=== PATIENT | male | born 1985 | race Hispanic/Latino ===

== ENCOUNTER 2018-10-15 11:51 | Emergency (ER) | payer MEDICAID ==
[2018-10-15] MEDS ORDERED: PENICILLIN V POTASSIUM 500 MG TABLET ONE (12:56)
[2018-10-15] MEDS ORDERED: ACETAMINOPHEN-CODEINE 300/30MG TAB ONE (12:57)
== END 2018-10-15 13:00 | disposition home or self-care (01) ==
LOC: EDH 11:51
DX: K08.89 Other specified disorders of teeth and supporting structures (principal); I10 Essential (primary) hypertension; F41.9 Anxiety disorder, unspecified; Z72.0 Tobacco use

== ENCOUNTER 2019-03-25 14:46 | Emergency (ER) | payer MEDICAID ==
[2019-03-25] MEDS ORDERED: ACETAMINOPHEN EXTRA STRENGTH 500 MG TABLET ONE (16:17)
[2019-03-25] MEDS ORDERED: SIMETHICONE 80 MG TAB.CHEW ONE (16:17)
[2019-03-25] MEDS ORDERED: HYOSCYAMINE SULFATE 0.125 MG TAB.SUBL SL ONE (16:18)
[2019-03-25] MEDS ORDERED: ONDANSETRON ODT 4 MG TAB ONE (16:18)
[2019-03-25 16:31] LABS: BASOPHILS % (AUTO) 0.5 % (0.0-5.0); EOSINOPHILS % (AUTO) 1.7 % (0.0-8.0); HEMATOCRIT 49.3 % (42-54); LYMPHOCYTES % (AUTO) 18.3 % (21.0-51.0); MEAN CORPUSCULAR HEMOGLOBIN 29.3 pg (27.0-33.0); MEAN CORPUSCULAR HGB CONC 34.4 g/dL (32.0-36.0); MEAN CORPUSCULAR VOLUME 85.2 fL (79-99); MONOCYTES % (AUTO) 7.7 % (3.0-13.0); NEUTROPHILS % (AUTO) 71.8 % (40.0-77.0); NUCLEATED RED BLOOD CELLS 0.1 % (0.0-0.19); PLATELET COUNT (AUTO) 136 K/uL (130-400); RED BLOOD CELL COUNT(AUTO) 5.78 MIL/uL (4.50-6.20); RED CELL DISTRIBUTION WIDTH 13.2 % (11.0-15.5); WHITE BLOOD COUNT (AUTO) 6.7 K/uL (4.8-10.8)
[2019-03-25 16:45] LABS: POTASSIUM 3.7 mmol/L (3.5-5.1)
[2019-03-25 16:50] LABS: BILIRUBIN,TOTAL 0.8 mg/dL (0.2-1.0); TOTAL PROTEIN, SERUM 8.2 g/dL (6.0-8.3)
== END 2019-03-25 17:07 | disposition home or self-care (01) ==
LOC: EDH 14:46
DX: R50.9 Fever, unspecified (principal); R11.2 Nausea with vomiting, unspecified; R19.7 Diarrhea, unspecified; I10 Essential (primary) hypertension; F41.9 Anxiety disorder, unspecified; Z87.891 Personal history of nicotine dependence
CPT/HCPCS: 36415; 80053; 83690; 85025

== ENCOUNTER 2019-03-29 21:31 | Emergency (ER) | payer MEDICAID ==
[2019-03-29] MEDS ORDERED: ACETAMINOPHEN-CODEINE 300/30MG TAB ONE (21:57)
[2019-03-29] MEDS ORDERED: TETANUS/DIPHTHERIA TOXOID [ADULT] 0.5 ML VIAL IM ONE (21:57)
== END 2019-03-29 22:09 | disposition home or self-care (01) ==
LOC: EDH 21:31
DX: T22.212A Burn of second degree of left forearm, initial encounter (principal); T31.0 Burns involving less than 10% of body surface; I10 Essential (primary) hypertension; F41.9 Anxiety disorder, unspecified; X12.XXXA Contact with other hot fluids, initial encounter; Y93.G3 Activity, cooking and baking; Y92.098 Other place in other non-institutional residence as the place of occurrence of the external cause; Y99.8 Other external cause status
CPT/HCPCS: 16020; 90471; 90714

== ENCOUNTER 2019-10-06 17:43 | Emergency (ER) | payer MEDICAID ==
[2019-10-06] MEDS ORDERED: SODIUM CHLORIDE 0.9% 1000ML 1,000 ML IV ONE ×3 (18:29→18:35)
[2019-10-06] MEDS ORDERED: ONDANSETRON HCL 4 MG/2 ML VIAL ONE (18:29)
[2019-10-06 18:55] LABS: BASOPHILS % (AUTO) 0.5 % (0.0-5.0); EOSINOPHILS % (AUTO) 0.4 % (0.0-8.0); HEMATOCRIT 48.4 % (42-54); LYMPHOCYTES % (AUTO) 15.4 % (21.0-51.0); MEAN CORPUSCULAR VOLUME 85.1 fL (79-99); MONOCYTES % (AUTO) 4.3 % (3.0-13.0); NEUTROPHILS % (AUTO) 79.4 % (40.0-77.0); PLATELET COUNT (AUTO) 143 K/uL (130-400); RED BLOOD CELL COUNT(AUTO) 5.69 MIL/uL (4.50-6.20); RED CELL DISTRIBUTION WIDTH 13.2 % (11.0-15.5); WHITE BLOOD COUNT (AUTO) 13.7 K/uL (4.8-10.8)
[2019-10-06 19:05] LABS: CREATININE 0.9 mg/dL (0.5-1.5); POTASSIUM 4.3 mmol/L (3.5-5.1)
[2019-10-06 19:10] LABS: ALBUMIN 4.2 g/dL (3.5-5.0); BILIRUBIN,TOTAL 0.4 mg/dL (0.2-1.0); TOTAL PROTEIN, SERUM 8.3 g/dL (6.0-8.3)
[2019-10-06] MEDS ORDERED: DICYCLOMINE HCL 10 MG/ML 2ML AMP IM ONE (20:38)
== END 2019-10-06 20:59 | disposition home or self-care (01) ==
LOC: EDH 17:43
DX: K52.9 Noninfective gastroenteritis and colitis, unspecified (principal); I10 Essential (primary) hypertension
CPT/HCPCS: 36415; 80053; 85025; 96372; 96374; 99284; J0500; J2405; J7030 ×3

== ENCOUNTER 2020-05-05 15:48 | Emergency (ER) | payer MEDICAID | END 2020-05-05 16:19 | disposition home or self-care (01) | LOC: EDH 15:48 | DX: K52.9 Noninfective gastroenteritis and colitis, unspecified (principal); I10 Essential (primary) hypertension; F41.9 Anxiety disorder, unspecified; Z72.0 Tobacco use ==

== ENCOUNTER 2022-07-06 21:17 | Emergency (ER) | payer MEDICAID ==
[~2022-07-06] VITALS: Ht 162.6 cm; Wt 77.1 kg
[2022-07-06 21:19] VITALS: BP 144/79
[2022-07-06] MEDS ORDERED: FAMO-136 PO (23:20)
[2022-07-06 23:29] LABS: BASOPHILS % (AUTO) 0.6 % (0.0-5.0); EOSINOPHILS % (AUTO) 0.2 % (0.0-8.0); HEMATOCRIT 49.3 % (42-54); LYMPHOCYTES % (AUTO) 19.9 % (21.0-51.0); MEAN CORPUSCULAR HEMOGLOBIN 29.4 pg (27.0-33.0); MEAN CORPUSCULAR HGB CONC 34.3 g/dL (32.0-36.0); MEAN CORPUSCULAR VOLUME 85.9 fL (79-99); MONOCYTES % (AUTO) 4.4 % (3.0-13.0); NEUTROPHILS % (AUTO) 74.7 % (40.0-77.0); PLATELET COUNT (AUTO) 145 K/uL (130-400); RED BLOOD CELL COUNT(AUTO) 5.74 MIL/uL (4.50-6.20); RED CELL DISTRIBUTION WIDTH 12.4 % (11.0-15.5); WHITE BLOOD COUNT (AUTO) 9.3 K/uL (4.8-10.8)
[2022-07-06] MEDS ORDERED: MAG/ALUM/SIMETH 30 ML UDCUP PO ONE (23:30)
[2022-07-06] MEDS ORDERED: FAMOTIDINE 20MG TAB PO ONE (23:30)
[2022-07-06] MEDS ORDERED: LIDOCAINE HCL 2% VISCOUS 15 ML UDCUP PO ONE (23:30)
[2022-07-06 23:38] LABS: POTASSIUM 4.1 mmol/L (3.5-5.1)
[2022-07-06 23:46] LABS: ALBUMIN 4.5 g/dL (3.5-5.0); TOTAL PROTEIN, SERUM 8.8 g/dL (6.0-8.3)
== END 2022-07-07 00:02 | disposition home or self-care (01) ==
LOC: EDH 21:17
DX: K21.9 Gastro-esophageal reflux disease without esophagitis (principal); I10 Essential (primary) hypertension; F41.9 Anxiety disorder, unspecified
CPT/HCPCS: 36415; 80053; 83690; 84484; 85025; 93005

== ENCOUNTER 2022-08-20 21:19 | Emergency (ER) | payer MEDICAID ==
[~2022-08-20] VITALS: Ht 165.1 cm; Wt 76.7 kg
[~2022-08-20 21:19] MED LIST: FAMO-136 PO
[2022-08-20 21:57] VITALS: BP 133/75
[2022-08-20 22:00] LABS: BASOPHILS % (AUTO) 0.5 % (0.0-5.0); EOSINOPHILS % (AUTO) 0.8 % (0.0-8.0); HEMATOCRIT 48.4 % (42-54); LYMPHOCYTES % (AUTO) 34.5 % (21.0-51.0); MEAN CORPUSCULAR HEMOGLOBIN 29.4 pg (27.0-33.0); MEAN CORPUSCULAR HGB CONC 34.7 g/dL (32.0-36.0); MEAN CORPUSCULAR VOLUME 84.8 fL (79-99); MONOCYTES % (AUTO) 6.5 % (3.0-13.0); NEUTROPHILS % (AUTO) 57.3 % (40.0-77.0); PLATELET COUNT (AUTO) 157 K/uL (130-400); RED BLOOD CELL COUNT(AUTO) 5.71 MIL/uL (4.50-6.20); RED CELL DISTRIBUTION WIDTH 12.8 % (11.0-15.5); WHITE BLOOD COUNT (AUTO) 9.4 K/uL (4.8-10.8)
[2022-08-20 22:08] LABS: POTASSIUM 3.5 mmol/L (3.5-5.1)
[2022-08-20 22:13] LABS: ALBUMIN 3.9 g/dL (3.5-5.0)
[2022-08-20 22:35] LABS: TOTAL PROTEIN, SERUM 8.3 g/dL (6.0-8.3)
[2022-08-20] MEDS ORDERED: PANT40TA PO (22:36)
== END 2022-08-20 23:01 | disposition home or self-care (01) ==
LOC: EDH 21:19
DX: K21.00 Gastro-esophageal reflux disease with esophagitis, without bleeding (principal); Z79.899 Other long term (current) drug therapy
CPT/HCPCS: 36415; 80053; 83690; 84484; 85025; 93005

== ENCOUNTER 2024-02-19 14:18 | Emergency (ER) | payer MEDICAID ==
[~2024-02-19] VITALS: Ht 152.4 cm; Wt 77.1 kg
[~2024-02-19 14:18] MED LIST changes: +PANT40TA PO
[2024-02-19] MEDS ORDERED: IBUP-2077 PO (15:52)
[2024-02-19] MEDS: IBUPROFEN 800 MG TAB PO ONE (15:56)
[2024-02-19 16:00] VITALS: BP 121/86; PULSE 95; RESP 18; O2SAT 99
== END 2024-02-19 16:04 | disposition home or self-care (01) ==
LOC: EDH 14:18
DX: S92.352A Displaced fracture of fifth metatarsal bone, left foot, initial encounter for closed fracture (principal); S93.402A Sprain of unspecified ligament of left ankle, initial encounter; X50.1XXA Overexertion from prolonged static or awkward postures, initial encounter; Y93.89 Activity, other specified; Y92.480 Sidewalk as the place of occurrence of the external cause; Y99.8 Other external cause status
CPT/HCPCS: 73610; 73630

== ENCOUNTER 2024-09-05 14:51 | Emergency (ER) | payer MEDICAID ==
[~2024-09-05] VITALS: Ht 152.4 cm; Wt 74.8 kg
[~2024-09-05 14:51] MED LIST changes: +IBUP-2077 PO
[2024-09-05 14:52] VITALS: BP 123/91; PULSE 106; RESP 14; TEMP 100
[2024-09-05 15:24] LABS: BASOPHILS # (AUTO) 0.05 K/uL (0.00-0.20); BASOPHILS % (AUTO) 0.3 % (0.0-5.0); EOSINOPHILS # (AUTO) 0.04 K/uL (0.00-0.70); EOSINOPHILS % (AUTO) 0.3 % (0.0-8.0); HEMATOCRIT 50.6 % (42-54); IMMATURE GRANULOCYTE ABSOLUTE 0.05 K/uL (0-1); LYMPHOCYTES # (AUTO) 1.3 K/uL (1.0-4.8); LYMPHOCYTES % (AUTO) 8.5 % (21.0-51.0); MEAN CORPUSCULAR HEMOGLOBIN 28.8 pg (27.0-33.0); MEAN CORPUSCULAR HGB CONC 34.2 g/dL (32.0-36.0); MEAN CORPUSCULAR VOLUME 84.3 fL (79-99); MONOCYTES # (AUTO) 0.8 K/uL (0.1-1.0); MONOCYTES % (AUTO) 5.2 % (3.0-13.0); NEUTROPHILS # (AUTO) 12.9 K/uL (1.8-7.7); NEUTROPHILS % (AUTO) 85.4 % (40.0-77.0); PLATELET COUNT (AUTO) 147 K/uL (130-400); RED CELL DISTRIBUTION WIDTH 12.7 % (11.0-15.5); WHITE BLOOD COUNT (AUTO) 15.1 K/uL (4.8-10.8)
[2024-09-05] MEDS ORDERED: 0.9%NACL 1000ML 1,000 ML IV ONE (15:30)
[2024-09-05] MEDS ORDERED: FAMOTIDINE 20MG VIAL IV ONE (15:30)
[2024-09-05] MEDS ORDERED: acetaMINOPHEN 500 MG TABLET PO ONE (15:30)
[2024-09-05] MEDS ORDERED: ondanSETRON 4MG INJ IVP ONE (15:30)
[2024-09-05 15:35] LABS: POTASSIUM 4.2 mmol/L (3.5-5.1)
[2024-09-05 15:39] LABS: ALBUMIN 4.1 g/dL (3.5-5.0); BILIRUBIN,DIRECT 0.1 mg/dL (0.0-0.3); BILIRUBIN,TOTAL 0.8 mg/dL (0.2-1.0); TOTAL PROTEIN, SERUM 8.3 g/dL (6.0-8.3)
--- NOTE | 2024-09-05 19:08 | NUR ---
CALLED PT FROM LOBBY TO MOVE TO ROOM 5; NO RESPONSE; PT NOT FOUND IN LOBBY.
--- NOTE | 2024-09-05 19:12 | ERN ---
General Chief Complaint: Diarrhea Stated Complaint: DIARRHEA Time Seen by MD: 14:55 Time Seen by Midlevel: 14:55 Source: patient History of Present Illness Initial Comments 39-year-old male presenting to the ER for evaluation of diffuse abdominal pain with associated diarrhea that started yesterday. Denies nausea and vomiting. Denies any other symptoms at this time Allergies: Coded Allergies: No Known Allergies (Unverified Allergy, Unknown, 07/06/22) Home Meds Active Scripts Ibuprofen (Ibuprofen 800 mg Tab) 800 Mg Tab, 800 MG PO Q6H PRN for PAIN, #30 TAB Prov:TEO NAVARRO NP 02/19/24 Pantoprazole Sodium (Protonix) 40 Mg Tablet.dr, 40 MG PO DAILY, #30 TAB 0 Refills Prov:NIEVES MAYER MD 08/20/22 Famotidine (Pepcid) 20 Mg Tablet, 20 MG PO DAILY, #30 TAB Prov:ARMIN LOUIE 07/06/22 Past Medical History Past Medical History: Anxiety, Hypertension Past Surgical History: None Social History Social History: Other ROS Dictation CONSTITUTIONAL: Negative except for HPI HEAD/FACE: Negative except for HPI EENT: Negative except for HPI RESPIRATORY: Negative except for HPI GASTROINTESTINAL/ABDOMINAL: Negative except for HPI GENITOURINARY: Negative except for HPI MUSCULOSKELETAL: Negative except for HPI INTEGUMENTARY: Negative except for HPI NEUROLOGICAL/PSYCH: Negative except for HPI HEMATOLOGIC/LYMPHATIC: Negative except for HPI All Systems Negative, Except as noted above. 13 point review of systems assessed and all negative except for above. Physical Exam Physical Exam Dictation PHYSICAL EXAM: GENERAL: alert,, awake oriented x 3 NECK: Supple, no JVD, trachea midline LUNGS: Clear breath sounds bilaterally. No wheezes HEART: Regular rate and rhythm. Normal S1 and S2, without murmurs ABD: Abdomen soft, nontender. Bowel sounds present EXT: No clubbing or cyanosis, NEURO: Alert and oriented to person, follows commands Results Laboratory and Microbiology Lab and Micro Result Laboratory Tests Test 09/05/24 15:09 White Blood Count 15.1 K/uL (4.8-10.8) H Red Blood Count 6.00 MIL/uL (4.50-6.20) Hemoglobin 17.3 g/dL (14.0-18.0) Hematocrit 50.6 % (42-54) Mean Corpuscular Volume 84.3 fL (79-99) Mean Corpuscular Hemoglobin 28.8 pg (27.0-33.0) Mean Corpuscular Hemoglobin Concent 34.2 g/dL (32.0-36.0) Red Cell Distribution Width 12.7 % (11.0-15.5) Platelet Count 147 K/uL (130-400) Mean Platelet Volume 11.8 fL (7.5-10.5) H Immature Granulocyte % (Auto) 0.3 % (0-1) Neutrophils (%) (Auto) 85.4 % (40.0-77.0) H Lymphocytes (%) (Auto) 8.5 % (21.0-51.0) L Monocytes (%) (Auto) 5.2 % (3.0-13.0) Eosinophils (%) (Auto) 0.3 % (0.0-8.0) Basophils (%) (Auto) 0.3 % (0.0-5.0) Neutrophils # (Auto) 12.9 K/uL (1.8-7.7) H Lymphocytes # (Auto) 1.3 K/uL (1.0-4.8) Monocytes # (Auto) 0.8 K/uL (0.1-1.0) Eosinophils # (Auto) 0.04 K/uL (0.00-0.70) Basophils # (Auto) 0.05 K/uL (0.00-0.20) Absolute Immature Granulocyte (auto 0.05 K/uL (0-1) Nucleated Red Blood Cells 0.0 % (0.0-0.19) White Cell Morphology Comment See comments Sodium Level 133 mmol/L (136-145) L Potassium Level 4.2 mmol/L (3.5-5.1) Chloride Level 97 mmol/L (101-111) L Carbon Dioxide Level 31 mmol/L (21-32) Blood Urea Nitrogen 13 mg/dL (7-18) Creatinine 1.0 mg/dL (0.5-1.3) Glomerular Filtration Rate Calc 97 mL/min (>90) Random Glucose 116 mg/dL (70-105) H Lactic Acid Level 1.7 mmol/L (0.8-2.5) Total Calcium 9.0 mg/dL (8.5-10.1) Total Bilirubin 0.8 mg/dL (0.2-1.0) Direct Bilirubin 0.1 mg/dL (0.0-0.3) Aspartate Amino Transf (AST/SGOT) 13 U/L (10-37) Alanine Aminotransferase (ALT/SGPT) 34 U/L (12-78) Alkaline Phosphatase 68 U/L (50-136) Total Protein 8.3 g/dL (6.0-8.3) Albumin 4.1 g/dL (3.5-5.0) Lipase 47 U/L (16-77) MDM 39-year-old male presenting with diffuse abdominal pain with associated diarrhea. He was seen in triage. Labs ordered. He was found to have a leukocytosis. A CT scan of the abdomen and pelvis with contrast is ordered however patient was nowhere to be found in the triage area. Patient eloped in the emergency department. ED Course Orders Procedure Category Date Status Time Basic Metabolic Panel LAB 09/05/24 Complete 15: Cbc With Differential LAB 09/05/24 Complete 15:03 Hepatic Function Panel LAB 09/05/24 Complete 15:03 Lactic Acid LAB 09/05/24 Complete 15:03 Lipase LAB 09/05/24 Complete 15:03 0.9%Nacl 1000ml (Ns PHA 09/05/24 Complete 1000ml) 15:30 Acetaminophen 500mg PHA 09/05/24 Complete Tab (Tylenol 500mg T 15:30 Ondansetron 4mg Inj PHA 09/05/24 Complete (Zofran 4mg Inj) 15:30 Famotidine 20mg Vial PHA 09/05/24 Complete (Pepcid 20mg Vial) 15:30 Current Medications Medications (Trade) Dose Ordered Sig/Abi Route PRN Reason Start Time Stop Time Status Last Admin Dose Admin Acetaminophen (TYLenol 500MG TAB) 1,000 mg ONCE ONCE PO 09/05/24 15:30 09/05/24 15:31 DC Famotidine (Pepcid 20mg Vial) 20 mg ONCE ONCE IV 09/05/24 15:30 09/05/24 15:31 DC Ondansetron HCl (zoFRAN 4MG INJ) 4 mg ONCE ONCE IVP 09/05/24 15:30 09/05/24 15:31 DC Sodium Chloride 1,000 ml @ 0 mls/hr ONCE ONCE IV 09/05/24 15:30 09/05/24 15:31 DC Vital Signs Date Time Temp Pulse Resp B/P (MAP) Pulse Ox O2 Delivery O2 Flow Rate FiO2 09/05/24 14:52 100.0 106 14 123/91 99 Room Air 0 DX & DISP Disposition: Other(Comment) (Eloped) Departure Impression: Primary Impression: Leukocytosis Additional Impressions: Diarrhea, Eloped from emergency department Condition: Stable Referrals: JESUS WYNN (PCP) I have reviewed the case, and I agree with, Diagnosis and Plan DARIO GENAO Sep 05, 2024 19:12 NOAH MALLORY DO Sep 06, 2024 08:01
--- NOTE | 2024-09-05 19:40 | NUR ---
CALLED FOR PT AGAIN IN LOBBY; NO RESPONSE; PT NOT FOUND IN LOBBY.
== END 2024-09-05 20:48 | disposition left against medical advice (07) ==
LOC: EDH 14:51
DX: D72.829 Elevated white blood cell count, unspecified (principal); R19.7 Diarrhea, unspecified; I10 Essential (primary) hypertension; F41.9 Anxiety disorder, unspecified; Z79.899 Other long term (current) drug therapy
CPT/HCPCS: 36415; 80048; 80076; 83605; 83690; 85025; 99283

== ENCOUNTER 2025-06-01 15:01 | Emergency (ER) | payer MEDICAID ==
[2025-06-01 15:07] VITALS: BP 149/101; PULSE 110; RESP 20; TEMP 98.9; O2SAT 98
--- NOTE | 2025-06-01 15:29 | ERN ---
ED Note History of Present Illness Stated Complaint: VOMITING Chief Complaint: Nausea,Vomiting,Diarrhea Time Seen by MD: 15:08 Dictation: PATIENT IS A 39-YEAR-OLD MALE COMING IN TODAY WITH COMPLAINTS OF VOMITING AND DIARRHEA ONSET YESTERDAY AFTER EATING AT [employer], [employer]. HE STATES HE VOMITED X2 HAD DIARRHEA X1. TODAY HE HAS HAD NO NAUSEA NO VOMITING HE DID HAVE DIARRHEA X1. HE DENIES ANY ABDOMINAL PAIN AT THIS TIME. STATES HE IS NOT NAUSEATED. NO FEVER NO CHILLS STATES THIS MORNING HE HAD A CAN OF SOUP FOR BREAKFAST Allergies: Coded Allergies: No Known Allergies (Unverified Allergy, Unknown, 07/06/22) Home Meds Active Scripts Ibuprofen (Ibuprofen 800 mg Tab) 800 Mg Tab, 800 MG PO Q6H PRN for PAIN, #30 TAB Prov:TEO NAVARRO NP 02/19/24 Pantoprazole Sodium (Protonix) 40 Mg Tablet.dr, 40 MG PO DAILY, #30 TAB 0 Refills Prov:NIEVES MAYER MD 08/20/22 Famotidine (Pepcid) 20 Mg Tablet, 20 MG PO DAILY, #30 TAB Prov:ARMIN LOUIE 07/06/22 Past Medical History Past Medical History: Hypertension Surgical History: None Social History: Other RN Note Reviewed/Agreed w/PFSH: Yes Review of System Dictation CONSTITUTIONAL: NEGATIVE EXCEPT FOR HPI HEAD/FACE: NEGATIVE EXCEPT FOR HPI EENT: NEGATIVE EXCEPT FOR HPI RESPIRATORY: NEGATIVE EXCEPT FOR HPI GASTROINTESTINAL/ABDOMINAL: NEGATIVE EXCEPT FOR HPI NAUSEA VOMITING DIARRHEA GENITOURINARY: NEGATIVE EXCEPT FOR HPI MUSCULOSKELETAL: NEGATIVE EXCEPT FOR HPI INTEGUMENTARY: NEGATIVE EXCEPT FOR HPI NEUROLOGICAL/PSYCH: NEGATIVE EXCEPT FOR HPI HEMATOLOGIC/LYMPHATIC: NEGATIVE EXCEPT FOR HPI ALL SYSTEMS NEGATIVE, EXCEPT NOTED ABOVE. 13 POINT REVIEW OF SYSTEMS ASSESSED AND ALL NEGATIVE EXCEPT FOR ABOVE. Initial Vital Sign VS Vital Signs Date Time Temp Pulse Resp B/P (MAP) Pulse Ox O2 Delivery O2 Flow Rate FiO2 06/01/25 15:05 99.0 110 20 149/101 98 Room Air 0 06/01/25 15:07 21 Physical Exam Dictation VITAL SIGNS REVIEWED NO FOCAL COMPLAINTS GENERAL APPEARANCE: ALERT, ORIENTED X 3, NO ACUTE DISTRESS, WELL DEVELOPED, NOURISHED. HEAD AND FACE: NON-TRAUMATIC. EYES: PERRL, PINK CONJUNCTIVAS, EYELID NO TRAUMA, ANTERIOR CHAMBER WITH ARCUS SENILIS. EARS: PINNAS INTACT AND NO SIGNS OF TRAUMA OR ERYTHEMA EAR CANALS CLEAR AND NO DISCHARGE TM NO ERYTHEMA NOSE: NO DISCHARGE, NO BLEEDING. OROPHARYNX: MOUTH NORMAL, TONGUE PINK, PHARYNX CLEAR,NO ERYTHEMA, TONSILS NO EXUDATES, NO ABSCESSES NOTED, MUCOUS MEMBRANE MOIST NECK: SUPPLE, NON-TENDER, NO THYROMEGALY, NO MASSES, NO JVD, NO BRUITS BREAST:DEFERRED CHEST:NO TENDERNESS, NO CREPITUS, NO PARADOXICAL MOVEMENT, NO RETRACTIONS LUNGS:CLEAR, WELL-VENTILATED, SYMMETRIC, NO RALES, NO WHEEZING, NO RHONCHI, NO STRIDOR, GOOD BREATH SOUNDS BILATERALLY HEART: REGULAR RATE, REGULAR RHYTHM, NO MURMUR, NO GALLOPS VASCULAR: NO PERIPHERAL EDEMA, ABDOMEN: SOFT, POSITIVE BOWEL SOUNDS, NONDISTENDED, NO GUARDING, NONTENDER, NO REBOUND, NO MASSES NO HEPATOMEGALY, NO SPLENOMEGALY, NO CLAYTON'S SIGN, NO HERNIAS. RECTAL: DEFERRED GENITAL: DEFERRED NEUROLOGICAL: NORMAL SPEECH, MOTOR FUNCTION INTACT, SENSORY FUNCTION INTACT MUSCULOSKELETAL: NECK NONTENDER, FULL RANGE OF MOTION, BACK NONTENDER, FULL RANGE OF MOTION, EXTREMITIES: NONTENDER, FULL RANGE OF MOTION SKIN: COLOR PINK, DRY, NO TURGOR, NO RASH, NO LACERATIONS, NO ABRASIONS, NO CONTUSIONS. LYMPHATIC: DEFERRED Results (Laboratory/Radiology) Labs Reviewed?: Yes ED Course ED Course Vital Signs Date Time Temp Pulse Resp B/P (MAP) Pulse Ox O2 Delivery O2 Flow Rate FiO2 06/01/25 15:07 99.0 110 20 149/101 98 Room Air* 0 21 06/01/25 15:05 99.0 110 20 149/101 98 Room Air 0 1640/patient refused labs said he only wants medications. No complaints at this time. Was a good home the Chase and have him follow up with his doctor Medical Decision Making MDM Medical decision-making his based on viral gastroenteritis that is resolving No nausea no vomiting no diarrhea at this time. We will discharge patient home with Chase told to see his doctor soon as possible DX & DISP Disposition: Discharge Departure Impression: Primary Impression: Viral gastroenteritis Additional Impression: Nausea & vomiting Condition: Stable Scripts Ondansetron (Ondansetron Odt) 4 Mg Tab.rapdis 4 MG PO Q6HPRN PRN for nausea, #16 TAB 0 Refills Prov: TEO NAVARRO NP 06/01/25 Additional Instructions: Follow-up with primary care provider in 1 to 2 days. Take medications as directed here in the emergency room. Okay to continue home medications unless otherwise discussed during your visit in the emergency room today. Return to your nearest emergency room if symptoms worsen or if there is no improvement. Call 911 if you need immediate assistance. Take Tylenol or Motrin [id number] as needed and if no contraindications are present. Increase oral hydration. A wound culture or urine culture was ordered here in the emergency room department please follow-up with primary care provider and advise them to get repeat ports from our facility. If you had any Marcin wrap/splints that were applied here, please do not remove them until you see your primary care or specialty. Clear liquid diet for the next 24 hours then advance diet slowly to regular. See your primary care doctor for follow up and management. Referrals: JESUS WYNN (PCP) Time of Disposition: 16:39 I have reviewed the case, and I agree with, Diagnosis and Plan TEO NAVARRO NP Jun 01, 2025 15:29
--- NOTE | 2025-06-01 16:00 | NUR ---
PT REFUSED BLOOD WORK
[2025-06-01] MEDS ORDERED: ONDA-243 PO (16:40)
== END 2025-06-01 16:49 | disposition home or self-care (01) ==
LOC: EDH 15:01
DX: A08.4 Viral intestinal infection, unspecified (principal); I10 Essential (primary) hypertension; Z79.899 Other long term (current) drug therapy
CPT/HCPCS: 99283

== ENCOUNTER 2025-08-10 16:53 | Emergency (ER) | payer MEDICAID ==
[~2025-08-10] VITALS: Ht 160 cm; Wt 80.7 kg
[~2025-08-10 16:53] MED LIST changes: +ONDA-243 PO
[2025-08-10] MEDS ORDERED: IBUP-2077 PO (17:05)
[2025-08-10] MEDS ORDERED: CLIN-141 PO (17:05)
--- NOTE | 2025-08-10 17:06 | ERN ---
ED Note History of Present Illness Stated Complaint: TOOTHACHE Chief Complaint: Tooth Ache/Pain Time Seen by MD: 16:58 Dictation: PATIENT IS A 39-YEAR-OLD MALE COMING IN TODAY WITH COMPLAINTS OF LEFT UPPER MOLAR PAIN WITH TOOTH DECAY THAT HE HAS HAD SINCE YESTERDAY. NO FEVER NO CHILLS NO NAUSEA VOMITING. NOT A DIABETIC. HAS NOT BEEN TO [place] OR HIS DOCTOR FOR TREATMENT 1ST TOOTH. Allergies: Coded Allergies: No Known Allergies (Unverified Allergy, Unknown, 07/06/22) Home Meds Active Scripts Ondansetron (Ondansetron Odt) 4 Mg Tab.rapdis, 4 MG PO Q6HPRN PRN for nausea, #16 TAB 0 Refills Prov:TEO NAVARRO CHUCK TENDER 06/01/25 Ibuprofen (Ibuprofen 800 mg Tab) 800 Mg Tab, 800 MG PO Q6H PRN for PAIN, #30 TAB Prov:TEO NAVARRO CHUCK TENDER 02/19/24 Pantoprazole Sodium (Protonix) 40 Mg Tablet.dr, 40 MG PO DAILY, #30 TAB 0 Ref ills Prov:NIEVES MAYER MD 08/20/22 Famotidine (Pepcid) 20 Mg Tablet, 20 MG PO DAILY, #30 TAB Prov:ARMIN LOUIE CHUCK TENDER 07/06/22 Past Medical History Past Medical History: Hypertension Surgical History: None Social History: Other RN Note Reviewed/Agreed w/PFSH: Yes Review of System Dictation CONSTITUTIONAL: NEGATIVE EXCEPT FOR HPI HEAD/FACE: NEGATIVE EXCEPT FOR HPI EENT: NEGATIVE EXCEPT FOR HPI DECAY AND FRACTURE TOOTH NUMBER 15 RESPIRATORY: NEGATIVE EXCEPT FOR HPI GASTROINTESTINAL/ABDOMINAL: NEGATIVE EXCEPT FOR HPI GENITOURINARY: NEGATIVE EXCEPT FOR HPI MUSCULOSKELETAL: NEGATIVE EXCEPT FOR HPI INTEGUMENTARY: NEGATIVE EXCEPT FOR HPI NEUROLOGICAL/PSYCH: NEGATIVE EXCEPT FOR HPI HEMATOLOGIC/LYMPHATIC: NEGATIVE EXCEPT FOR HPI ALL SYSTEMS NEGATIVE, EXCEPT NOTED ABOVE. 13 POINT REVIEW OF SYSTEMS ASSESSED AND ALL NEGATIVE EXCEPT FOR ABOVE. Initial Vital Sign VS Vital Signs Date Time Temp Pulse Resp B/P (MAP) Pulse Ox O2 Delivery O2 Flow Rate FiO2 08/10/25 16:54 99.1 106 18 140/90 97 Room Air 0 Physical Exam Dictation VITAL SIGNS REVIEWED GENERAL APPEARANCE: ALERT, ORIENTED X 3, NO ACUTE DISTRESS, WELL DEVELOPED, NOURISHED. HEAD AND FACE: NON-TRAUMATIC. EYES: PERRL, PINK CONJUNCTIVAS, EYELID NO TRAUMA, ANTERIOR CHAMBER WITH ARCUS SENILIS. EARS: PINNAS INTACT AND NO SIGNS OF TRAUMA OR ERYTHEMA EAR CANALS CLEAR AND NO DISCHARGE TM NO ERYTHEMA NOSE: NO DISCHARGE, NO BLEEDING. OROPHARYNX: MOUTH NORMAL, TONGUE PINK, DENTAL DECAY WITH FRACTURE OF TOOTH 15, MILD GINGIVAL ERYTHEMA PHARYNX CLEAR,NO ERYTHEMA, TONSILS NO EXUDATES, NO ABSCESSES NOTED, MUCOUS MEMBRANE MOIST NECK: SUPPLE, NON-TENDER, NO THYROMEGALY, NO MASSES, NO JVD, NO BRUITS BREAST:DEFERRED CHEST:NO TENDERNESS, NO CREPITUS, NO PARADOXICAL MOVEMENT, NO RETRACTIONS LUNGS:CLEAR, WELL-VENTILATED, SYMMETRIC, NO RALES, NO WHEEZING, NO RHONCHI, NO STRIDOR, GOOD BREATH SOUNDS BILATERALLY HEART: REGULAR RATE, REGULAR RHYTHM, NO MURMUR, NO GALLOPS VASCULAR: NO PERIPHERAL EDEMA, ABDOMEN: SOFT, POSITIVE BOWEL SOUNDS, NONDISTENDED, NO GUARDING, NONTENDER, NO REBOUND, NO MASSES NO HEPATOMEGALY, NO SPLENOMEGALY, NO CLAYTON'S SIGN, NO HERNIAS. RECTAL: DEFERRED GENITAL: DEFERRED NEUROLOGICAL: NORMAL SPEECH, MOTOR FUNCTION INTACT, SENSORY FUNCTION INTACT MUSCULOSKELETAL: NECK NONTENDER, FULL RANGE OF MOTION, BACK NONTENDER, FULL RANGE OF MOTION, EXTREMITIES: NONTENDER, FULL RANGE OF MOTION SKIN: COLOR PINK, DRY, NO TURGOR, NO RASH, NO LACERATIONS, NO ABRASIONS, NO CONTUSIONS. LYMPHATIC: DEFERRED Results (Laboratory/Radiology) Labs Reviewed?: Yes ED Course ED Course Orders Procedure Category Date Status Time Ibuprofen 800 Mg Tab PHA 08/10/25 Complete (Motrin) 17:00 Current Medications Medications (Trade) Dose Ordered Sig/Abi Route PRN Reason Start Time Stop Time Status Last Admin Dose Admin Ibuprofen (moTRIN) 800 mg ONCE ONCE PO 08/10/25 17:00 08/10/25 17:01 DC Vital Signs Date Time Temp Pulse Resp B/P (MAP) Pulse Ox O2 Delivery O2 Flow Rate FiO2 08/10/25 16:54 99.1 106 18 140/90 97 Room Air 0 1705/NO LABS OR IMAGING INDICATED. PATIENT WILL BE GIVEN IBUPROFEN AND TOLD FOLLOW UP WITH HIS DENTIST IN [place] OR [facility]NAG[facility]. PRESCRIBED CLINDAMYCIN FOR 10 DAYS AND IBUPROFEN Medical Decision Making MDM MEDICAL DECISION-MAKING BASED ON EMPIRIC TREATMENT FOR TOOTH DECAY INTO PULL. PATIENT GIVEN IBUPROFEN FOR PAIN DISCHARGED HOME WITH IBUPROFEN AND CLINDAMYCIN FOR 10 DAYS TOLD SEE HIS DENTIST DX & DISP Disposition: Discharge Departure Impression: Primary Impression: Dental caries extending into pulp Additional Impression: Tooth fracture with loss of restorative material Condition: Stable Scripts Ibuprofen (Ibuprofen 800 mg Tab) 800 Mg Tab 800 MG PO Q8H PRN for fever or pain, #30 TAB 0 Refills Prov: TEO NAVARRO 08/10/25 Clindamycin HCl (Clindamycin HCl) 300 Mg Capsule 1 CAP PO QID for 10 Days, #40 CAP 0 Refills Prov: TEO NAVARROP 08/10/25 Additional Instructions: FOLLOW-UP WITH PRIMARY CARE PROVIDER IN 1 TO 2 DAYS. TAKE MEDICATIONS DIRECTED HERE IN THE EMERGENCY ROOM. OKAY TO CONTINUE HOME MEDICATIONS UNLESS OTHERWISE DISCUSSED DURING YOUR VISIT IN THE EMERGENCY ROOM TODAY. RETURN TO YOUR NEAREST EMERGENCY ROOM IF SYMPTOMS WORSEN OR IF THERE IS NO IMPROVEMENT. CALL 911 IF YOU NEED IMMEDIATE ASSISTANCE. TAKE TYLENOL OR MOTRIN [id number] NEEDED AND IF NO CONTRAINDICATIONS ARE PRESENT. INCREASE ORAL HYDRATION. A WOUND CULTURE OR URINE CULTURE WAS ORDERED HERE IN THE EMERGENCY ROOM DEPARTMENT PLEASE FOLLOW-UP WITH PRIMARY CARE PROVIDER AND ADVISE THEM TO GET REPEAT PORTS FROM OUR FACILITY. IF YOU HAD ANY BINA WRAP/SPLINTS THAT WERE APPLIED HERE, PLEASE DO NOT REMOVE THEM UNTIL YOU SEE YOUR PRIMARY CARE OR SPECIALTY. TAKE CLINDAMYCIN DIRECTED UNTIL GONE. TAKE TWO CAPSULES FOR THE 1ST DOSE THEN ONE CAPSULE EVERY 6 HOURS. SEE YOUR DENTIST FOR FOLLOW UP OR GO TO [place] FOR DENTAL CARE. Referrals: JESUS WYNN (PCP) Time of Disposition: 17:04 I have reviewed the case, and I agree with, Diagnosis and Plan TEO NAVARRO Aug 10, 2025 17:06
[2025-08-10 17:22] VITALS: BP 132/88; PULSE 100; RESP 18; TEMP 98.9; O2SAT 97
== END 2025-08-10 17:23 | disposition home or self-care (01) ==
LOC: EDH 16:53
DX: S02.5XXA Fracture of tooth (traumatic), initial encounter for closed fracture (principal); K02.9 Dental caries, unspecified; I10 Essential (primary) hypertension; Z79.899 Other long term (current) drug therapy; X58.XXXA Exposure to other specified factors, initial encounter; Y93.89 Activity, other specified; Y92.89 Other specified places as the place of occurrence of the external cause; Y99.8 Other external cause status
CPT/HCPCS: 99283

== ENCOUNTER 2025-10-10 22:38 | Emergency (ER) | payer MEDICAID ==
[~2025-10-10] VITALS: Ht 157.5 cm; Wt 79.4 kg
[~2025-10-10 22:38] MED LIST changes: +CLIN-141 PO
[2025-10-10 22:39] VITALS: BP 150/100; PULSE 111; RESP 20; TEMP 98.5
--- NOTE | 2025-10-10 22:44 | NUR ---
UA CUP PROVIDED
[2025-10-10] MEDS ORDERED: FAMOTIDINE 20MG TAB PO ONE (23:00)
[2025-10-10] MEDS ORDERED: LIDOCAINE HCL 2% VISCOUS 15 ML UDCUP PO ONE (23:00)
[2025-10-10] MEDS ORDERED: MAG/ALUM/SIMETH 30 ML UDCUP PO ONE (23:00)
--- NOTE | 2025-10-10 23:21 | NUR ---
PT REFUSED CHEST X RAY PER RADIOLOGY STAFF. STATED HE WANTED TO GO HOME. PT SEEN WALKING OUT OF ER WITHUT COMMUNICATING WITH NURSING STAFF ON RATIONALE
--- NOTE | 2025-10-11 10:48 | EKG ---
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 : 1985 Requested By: DARIO GENAO Order Number: [id number] Reading MD: Alex Cramer Measurements Intervals [place] Rate: 107 P: 40 [place]: 97 QRS: -25 QRSD: 113 T: 40 QT: 349 QTc: 452 Interpretive Statements Sinus tachycardia with irregular rate Incomplete right bundle branch block Probable left ventricular hypertrophy Compared to ECG 08/20/2022 21:27:24 Incomplete right bundle-branch block now present Atrial premature complex(es) no longer present Aberrant conduction of supraventricular beat(s) no longer present Myocardial infarct finding no longer present Electronically Signed On 10-13-2025 09:18:05 GEAR TESTER by Alex Cramer Please click the below link to view image of tracing.
== END 2025-10-10 23:23 | disposition left against medical advice (07) ==
LOC: EDH 22:38
DX: R07.89 Other chest pain (principal); Z53.29 Procedure and treatment not carried out because of patient's decision for other reasons
CPT/HCPCS: 93005; 99281

== ENCOUNTER 2025-10-12 12:59 | Emergency (ER) | payer MEDICAID ==
[~2025-10-12] VITALS: Ht 157.5 cm; Wt 79.4 kg
--- NOTE | 2025-10-12 13:15 | EKG ---
[facility] Test Date: 2025-10-12 Test Time: 13:05:52 Pat Name: BRIANNA MCKINLEY Department: ED Room: Gender: M Backbreaker: [id number] : 1985 Requested By: HOLLY DIAZ Order Number: [id number] Reading MD: Alex Cramer Measurements Intervals [place] Rate: 107 P: 49 [place]: 111 QRS: 9 QRSD: 108 T: 35 QT: 351 QTc: 458 Interpretive Statements Sinus tachycardia Atrial premature complexes Probable left ventricular hypertrophy Compared to ECG 10/10/2025 22:37:17 Atrial premature complex(es) now present Incomplete right bundle-branch block no longer present Electronically Signed On 10-13-2025 09:33:17 ENTRY LEVEL SALES ASSOCIATE by Alex Cramer Please click the below link to view image of tracing.
[2025-10-12] MEDS: MAG/ALUM/SIMETH 30 ML UDCUP PO ONE (13:25)
[2025-10-12] MEDS: LIDOCAINE HCL 2% VISCOUS 15 ML UDCUP PO ONE (13:25)
[2025-10-12] MEDS ORDERED: PANT40TA55 PO (13:29)
--- NOTE | 2025-10-12 13:29 | ERN ---
General Chief Complaint: Heartburn/GI Distress Stated Complaint: HEART BURN Time Seen by MD: 13:00 Source: patient History of Present Illness Initial Comments PATIENT IS A 40-YEAR-OLD MALE COMING IN COMPLAINING OF GASTRIC REFLUX. HE STATES THAT HE DOES HAS A HISTORY OF GERD WITH A GASTRITIS AND WAS GIVEN OMEPRAZOLE HE BELIEVES THAT THE OMEPRAZOLE ISN'T WORKING. HE IS HERE FOR FURTHER EVALUATION. ALONG WITH THE HIS HE STATES THAT HE HAD BEEN EATING HOT WINGS LAST NIGHT HE BELIEVES THAT THIS STIMULATED THE DISCOMFORT Allergies: Coded Allergies: No Known Allergies (Unverified Allergy, Unknown, 07/06/22) Home Meds Active Scripts Ibuprofen (Ibuprofen 800 mg Tab) 800 Mg Tab, 800 MG PO Q8H PRN for fever or pa in, #30 TAB 0 Refills Prov:TEO NAVARRO [facility] 08/10/25 Clindamycin HCl (Clindamycin HCl) 300 Mg Capsule, 1 CAP PO QID for 10 Days, #40 CAP 0 Refills Prov:TEO NAVARRO [facility] 08/10/25 Ondansetron (Ondansetron Odt) 4 Mg Tab.rapdis, 4 MG PO Q6HPRN PRN for nausea, #16 TAB 0 Refills Prov:TEO NAVARRO [facility] 06/01/25 Ibuprofen (Ibuprofen 800 mg Tab) 800 Mg Tab, 800 MG PO Q6H PRN for PAIN, #30 TAB Prov:TEO NAVARRO [employer] 02/19/24 Pantoprazole Sodium (Protonix) 40 Mg Tablet.dr, 40 MG PO DAILY, #30 TAB 0 Refills Prov:NIEVES MAYER MD 08/20/22 Famotidine (Pepcid) 20 Mg Tablet, 20 MG PO DAILY, #30 TAB Prov:ARMIN LOUIE [facility] 07/06/22 Past Medical History Past Medical History: Hypertension Medical History Other: NON COMPLIANT Past Surgical History: None Social History Social History: Other ROS Dictation CONSTITUTIONAL: NO CHILLS, NO FEVER, NO WEAKNESS, NO DIAPHORESIS, NO MALAISE. HEAD/FACE: NO SIGNS OF TRAUMA. EENT: NO EYE PAIN, NO BLURRED VISION, NO TEARING, NO DOUBLE VISION, NO EAR PAIN, NO EAR DISCHARGE, NO NOSE PAIN, NO NASAL CONGESTION, NO THROAT PAIN, NO THROAT SWELLING, NO MOUTH PAIN. RESPIRATORY: NO COUGH, NO ORTHOPNEA, NO SOB, NO STRIDOR, NO WHEEZING. CARDIOVASCULAR: NO CHEST PAIN, NO EDEMA, NO PALPITATIONS, NO SYNCOPE. GASTROINTESTINAL/ABDOMINAL: NO ABDOMINAL PAIN, NO CONSTIPATION, NO DIARRHEA, NO NAUSEA, NO VOMITING. GENITOURINARY: NO ABNORMAL DISCHARGE, NO DYSURIA, NO FREQUENT URINATION, NO HEMATURIA. NO COMPLAINTS OF PAIN IN THE GENITALS. MUSCULOSKELETAL: NO BACK PAIN, NO GOUT, NO JOINT PAIN, NO JOINT SWELLING, NO MUSCLE PAIN, NO MUSCLE STIFFNESS, NO NECK PAIN. INTEGUMENTARY: NO CHANGE IN COLOR, NO CHANGE IN HAIR/NAILS, NO DRYNESS, NO LESION, NO LUMPS, NO RASH. NEUROLOGICAL/PSYCH: NO ANXIETY, NOT DEPRESSED, NO EMOTIONAL PROBLEM, NO HEADACHE, NO NUMBNESS, NO PRE-EXISTING DEFICIT, NO HISTORY OF SEIZURES, NO TREMORS, NO WEAKNESS. HEMATOLOGIC/LYMPHATIC: NOT ANEMIC, NO HISTORY OF BLOOD CLOTS, NO APPARENT BLEEDING, NO BRUISING, GLANDS NOT SWOLLEN. ALL SYSTEMS NEGATIVE, EXCEPT NOTED. Physical Exam Physical Exam Dictation VITAL SIGNS: REVIEWED. GENERAL APPEARANCE: ALERT, ORIENTED X3, NO ACUTE DISTRESS, OBESE. HEAD AND FACE: NON-TRAUMATIC. EYES: PERRL, PINK CONJUNCTIVAS, EYELID NO TRAUMA, ANTERIOR CHAMBER CLEAR. EARS: PINNAS INTACT AND NO SIGNS OF TRAUMA OR ERYTHEMA. EAR CANALS CLEAR AND NO DISCHARGE. TMS NO ERYTHEMA. NOSE: NO DISCHARGE, NO BLEEDING. OROPHARYNX: MOUTH NORMAL, TEETH NO CARIES, TONGUE PINK. PHARYNX CLEAR, NO ERYTHEMA. TONSILS NO EXUDATES, NO ABSCESSES NOTED. MUCOUS MEMBRANE MOIST. NECK: SUPPLE, NON-TENDER, NO THYROMEGALY, NO MASSES, NO JVD, NO BRUITS. BREAST: DEFERRED. CHEST: NO TENDERNESS, NO CREPITUS, NO PARADOXICAL MOVEMENT, NO RETRACTIONS. LUNGS: CLEAR, WELL-VENTILATED, SYMMETRIC, NO RALES, NO WHEEZING, NO RHONCHI, NO STRIDOR, GOOD BREATH SOUNDS BILATERALLY. HEART: REGULAR RATE, REGULAR RHYTHM, NO MURMUR, NO GALLOPS. VASCULAR: NO PERIPHERAL EDEMA. ABDOMEN: SOFT, POSITIVE BOWEL SOUNDS, NONDISTENDED, NO GUARDING, NONTENDER, NO R EBOUND, NO MASSES NO HEPATOMEGALY, NO SPLENOMEGALY, NO CLAYTON'S SIGN, NO HERNIAS. RECTAL: DEFERRED. GENITAL: DEFERRED. NEUROLOGICAL: NORMAL SPEECH, GROSS MOTOR FUNCTION INTACT, GROSS SENSORY FUNCTION INTACT. MUSCULOSKELETAL: NECK NONTENDER, FULL RANGE OF MOTION, BACK NONTENDER, FULL RANGE OF MOTION. EXTREMITIES: NONTENDER, FULL RANGE OF MOTION. SKIN: COLOR PINK, DRY, NO TURGOR, NO RASH, NO LACERATIONS, NO ABRASIONS, NO CONTUSIONS. LYMPHATICS: DEFERRED. Results Laboratory and Microbiology Labs Reviewed?: Yes EKG/XRAY/US/CT/MRI EKG Comment 10/12/2025 TIME 1:05 P.M. VENTRICULAR RATE 107 SINUS TACHYCARDIA IN [address] WAVE ELEVATION OR DEPRESSION MDM MDM: DIFFERENTIAL DIAGNOSIS: RATIONALE: TESTS CONSIDERED AND ORDERED SECONDARY TO SHARED DECISION MAKING INCLUDE: PREVIOUS OUTSIDE RECORDS REVIEWED: OLD ER VISITS. RISK OF COMPLICATION AND/OR MORBIDITY OR MORTALITY OF PATIENT MANAGEMENT: NONE MEDICATIONS-PER MEDICATION RECONCILIATION NEED FOR HOSPITALIZATION: PATIENT DOES NOT MEET CRITERIA FOR HOSPITALIZATION. NEED FOR EMERGENCY MAJOR/MINOR SURGERY: NO PATIENT IS A 40-YEAR-OLD MALE COMING IN COMPLAINING OF EPIGASTRIC DISCOMFORT HE STATES THAT HE WAS DIAGNOSED WITH A GERD WITH A GASTRITIS AND WAS GIVEN OMEPRAZOLE. HE STATES THAT THE MEDICATION ISN'T WORKING. PATIENT RECEIVED A GI COCKTAIL IN HIS SYMPTOMS IMPROVED. ED Course Orders Procedure Category Date Status Time 12 Lead Ekg Tracing- EKG 10/12/25 Complete Technical 13:01 Lidocaine Hcl 2% PHA 10/12/25 In Process Viscous (Lidocaine Hcl 13:30 Mag/Alum/Simeth 30ml PHA 10/12/25 In Process (Maalox Plus 30ml) 13:30 Current Medications Medications (Trade) Dose Ordered Sig/Abi Route PRN Reason Start Time Stop Time Status Last Admin Dose Admin Al Hydroxide/Mg Hydroxide (MAALox PLUS 30ML) 30 ml ONCE ONCE PO 10/12/25 13:30 10/12/25 13:31 Lidocaine HCl (Lidocaine HCl 2% Viscous) 10 ml ONCE ONCE PO 10/12/25 13:30 10/12/25 13:31 Vital Signs Date Time Temp Pulse Resp B/P (MAP) Pulse Ox O2 Delivery O2 Flow Rate FiO2 10/12/25 13:17 98.1 94 16 155/92 98 Room Air* 0 21 10/12/25 13:00 98.1 94 16 155/92 98 Room Air DX & DISP Disposition: Inpatient Departure Impression: Primary Impression: GERD with esophagitis Condition: Stable Scripts Pantoprazole Sodium (Protonix) 40 Mg Ectab 1 TAB PO DAILY for 30 Days, #30 TAB 0 Refills Prov: HOLLY DIAZ MD 10/12/25 Additional Instructions: FOLLOW-UP WITH PRIMARY CARE PROVIDER IN 1 TO 2 DAYS. TAKE MEDICATIONS DIRECTED HERE IN THE EMERGENCY ROOM. OKAY TO CONTINUE HOME MEDICATIONS UNLESS OTHERWISE DISCUSSED DURING YOUR VISIT IN THE EMERGENCY ROOM TODAY. RETURN TO YOUR NEAREST EMERGENCY ROOM IF SYMPTOMS WORSEN OR IF THERE IS NO IMPROVEMENT. CALL 911 IF YOU NEED IMMEDIATE ASSISTANCE. TAKE TYLENOL [id number] NEEDED AND IF NO CONTRAINDICATIONS ARE PRESENT. INCREASE ORAL HYDRATION. A WOUND CULTURE OR URINE CULTURE WAS ORDERED HERE IN THE EMERGENCY ROOM DEPARTMENT PLEASE FOLLOW-UP WITH PRIMARY CARE PROVIDER AND ADVISE THEM TO GET REPORTS FROM OUR FACILITY. IF YOU HAD ANY BINA WRAP/SPLINTS THAT WERE APPLIED HERE, PLEASE DO NOT REMOVE THEM UNTIL YOU SEE YOUR PRIMARY CARE OR SPECIALTY. REFERRALS: Referrals: JESUS WYNN (PCP) Time of Disposition: 13:28 HOLLY DIAZ MD Oct 12, 2025 13:29
[2025-10-12 13:34] VITALS: BP 142/84; PULSE 88; RESP 16; TEMP 98.1; O2SAT 98
== END 2025-10-12 13:35 | disposition home or self-care (01) ==
LOC: EDH 12:59
DX: K21.00 Gastro-esophageal reflux disease with esophagitis, without bleeding (principal); I10 Essential (primary) hypertension; Z79.899 Other long term (current) drug therapy; Z87.19 Personal history of other diseases of the digestive system
CPT/HCPCS: 93005; 99283